=== PATIENT | female | born 1975 | race Caucasian/White ===

== ENCOUNTER 2024-03-24 18:05 | Emergency (ER) | payer MEDICAID, SELFPAY ==
[2024-03-24 18:25] VITALS: BP 135/89; PULSE 78; RESP 16; TEMP 36.4; O2SAT 100
--- NOTE | 2024-03-24 19:24 | ED.ANXIETY ---
HPI - Anxiety General Chief Complaint: Anxiety Stated Complaint: Anxiety, unable to sleep Time Seen by Provider: 03/24/24 19:04 History of Present Illness HPI narrative: patient presents here asking for medication refill, she is on Abilify and clonazepam, and unfortunately was unable to go to her doctor for refill at this time since her daughter is about to give her and she just needs enough to get her through. She feels like she is having acute anxiety Related Data Allergies Allergy/AdvReac Type Severity Reaction Status Date / Time No Known Allergies Allergy Verified 03/24/24 19:13 Review of Systems Review of Systems: CONST: No fever. HEENT: No sore throat C/V: No chest pain RESP: No cough GI: no abdominal pain : No dysuria. M/S: No joint pain. SKIN: No rash. NEURO: [No headache or focal numbness or weakness] PSYCH: appears anxious Exam Narrative: EXAMINATION OF ORGAN SYSTEMS/BODY AREAS: Constitutional: Vital signs per nursing GENERAL: Appears slightly anxious HEAD: Normal with no signs of head trauma. EYES: EOMI, conjunctiva normal ENT: Hearing grossly intact LUNGS: Nonlabored breathing. HEART: [Regular rate and rhythm] ABD: [Soft], [nontender to palpation] EXT: Normal range of motion SKIN: [No rashes or lesions.] NEURO: [Alert and oriented x 3. No gross focal sensory or strength deficits.] PSYCH: Anxious affect Course Vital Signs Vital signs: Vital Signs Temperature 97.6 F 03/24/24 18:25 Pulse Rate 78 03/24/24 18:25 Respiratory Rate 16 03/24/24 18:25 Blood Pressure 135/89 03/24/24 18:25 Pulse Oximetry 100 03/24/24 18:25 Oxygen Delivery Room Air 03/24/24 18:25 Temperature 97.6 F 03/24/24 18:25 Pulse Rate 78 03/24/24 18:25 Respiratory Rate 16 03/24/24 18:25 Blood Pressure 135/89 03/24/24 18:25 Pulse Oximetry 100 03/24/24 18:25 Oxygen Delivery Room Air 03/24/24 18:25 MDM - Anxiety MDM Narrative Medical decision making narrative: patient presents here requesting refill of her Klonopin and Abilify for at least a few days until her daughter gives , she is feeling acute anxiety currently. I did consider possible withdrawal however she has normal vital signs, does not appear tremulous, I did have a discussion with the patient that unfortunately I cannot give her too much supply of her Klonopin as it is a controlled substance but I will give her enough tab to hopefully keep her from going into withdrawal until she sees her primary care doctor for refill, I will also give her her supply of Abilify. I let her know she can return to the emergency room for any further issues. She is agreeable to this plan. Discharge Plan Discharge Clinical Impression: Acute anxiety, Medication refill Patient Disposition: Home, Self-Care Condition: Stable Instructions: Antibiotic Form, Anxiety (ED) Additional Instructions: Please follow up with your doctor; you can always return for any further issues. Prescriptions: New clonazepam 1 mg tablet 1 mg PO PRN Qty: 7 0RF Rx Instructions: Take 0.5 tab to 1 tab PRN daily as needed for severe anxiety. aripiprazole [Abilify] 10 mg tablet 10 mg PO DAILY Qty: 14 0RF Follow-up/Referrals: PHYSICIAN,CAR SEAT UPHOLSTERER [Primary Care Provider] -
[2024-03-24] MEDS: clonazePAM (*CRX) 0.5 MG TABLET PO (19:39)
[2024-03-24] MEDS: ARIPiprazole 10 MG TABLET PO (19:39)
[2024-03-24 20:17] VITALS: BP 126/76; PULSE 78; RESP 18; TEMP 36.7; O2SAT 98
== END 2024-03-24 20:18 | disposition home or self-care (01) ==
LOC: ANHED 20:01
PROVIDERS: Emergency Provider Emergency Medicine
DX: F41.9 Anxiety disorder, unspecified (principal); Z76.0 Encounter for issue of repeat prescription
CPT/HCPCS: 99283; A9270

== ENCOUNTER 2024-05-10 16:30 | Outpatient (CLI) | payer MEDICAID, SELFPAY ==
--- NOTE | ~2024-05-10 | MM_ITS ---
EXAMINATION: MM screening khadra BI w maria antonia HISTORY: Screening TECHNIQUE: Craniocaudal and mediolateral oblique 3-D tomosynthesis images were obtained and synthetic 2-D images were generated. CAD analysis was submitted and interpreted. COMPARISON: No prior mammogram is available for comparison at this institution. BREAST PARENCHYMAL COMPOSITION: Dense: The breasts are extremely dense, which lowers the sensitivity of mammography. FINDINGS: There is no evidence of suspicious mass, calcification, or architectural distortion to sugg est malignancy in either breast. There has been no suspicious interval change. IMPRESSION: 1. No mammographic evidence of malignancy. 2. Recommend routine screening mammography in one year. BI-RADS Category 1: Negative Reviewed, dictated and finalized at location B.
== END 2024-05-10 16:31 | disposition home or self-care (01) ==
LOC: ANHIMG 16:32
PROVIDERS: PCP Internal Medicine Infectious Disease; Visit Provider Internal Medicine Infectious Disease
DX: Z12.31 Encounter for screening mammogram for malignant neoplasm of breast (principal)
CPT/HCPCS: 77063; 77067

== ENCOUNTER 2024-05-30 19:14 | Emergency (ER) | payer OTHER, SELFPAY ==
[2024-05-30] VITALS (8 sets, daily range): BP systolic 136–153; BP diastolic 87–100; PULSE 61–77; RESP 12–17; TEMP 36.6; O2SAT 98–100
--- NOTE | ~2024-05-30 | XR_ITS ---
EXAMINATION: XR chest 2V DATE: 05/30/2024 19:46 INDICATION: Chest pain. Shortness of breath. TECHNIQUE: Frontal and lateral views of the chest were obtained. COMPARISON: None. FINDINGS: A calcified right lung nodule and calcified right hilar lymph nodes are consistent with old granulomatous disease. There is mild scarring at the lung apices. No pleural effusion or pneumothora x. The heart size is normal. IMPRESSION: 1. Mild scarring at the lung apices. Reviewed, dictated and finalized at location A.
--- NOTE | 2024-05-30 19:18 | ECG_ITS ---
Test Date: 2024-05-30 19:22:01 Measurements Intervals [place] Rate: 66 P: 61 [place]: 136 QRS: 33 QRSD: 95 T: 27 QT: 405 QTc: 425 Interpretive Statements SINUS RHYTHM No previous ECG available for comparison Electronically Signed On 05-31-2024 09:39:09 CDT by Rosalva Long M.D.
[2024-05-30 19:36] LABS: Basophils Absolute Auto 0.1 K/mm3 (0.0-0.1); Basophils Percent Auto 0.7 % (0.2-1.2); Eosinophils Absolute Auto 0.2 K/mm3 (0-0.3); Eosinophils Percent Auto 1.9 % (0-4.4); Hematocrit 37.6 % (37.0-47.0); Hemoglobin 12.6 g/dL (12.0-15.0); Immature Granulocyte Absolute 0.03 K/mm3 (0.00-0.031); Immature Granulocyte Percent A 0.3 % (0-0.5); Lymphocytes Absolute Auto 2.55 K/mm3 (0.9-3.2); Lymphocytes Percent Auto 25.6 % (18.3-44.2); Mean Corpuscular HGB Conc 33.5 g/dl (32-36); Mean Corpuscular Hemoglobin 30.8 pg (26-34); Mean Corpuscular Volume 91.9 fl (80-100); Monocytes Absolute Auto 0.8 K/mm3 (0.1-0.6); Monocytes Percent Auto 7.8 % (2.6-8.5); Neutrophils Absolute Auto 6.4 K/mm3 (1.3-6.7); Neutrophils Percent Auto 63.7 % (45.5-73.1); Platelet Count Result 328 k/mm3 (150-375); Red Blood Count 4.09 M/mm3 (4.2-5.4); Red Cell Distribution Width 12.8 % (11.5-14.5)
[2024-05-30 19:45] LABS: INR 1.1; Prothrombin Time 14.4 Seconds (11.1-14.7)
[2024-05-30 19:46] LABS: Partial Thromboplastin Time 34.4 Seconds (22.3-36.8)
[2024-05-30 19:50] LABS: Alanine Aminotransferase 17 U/L (6-35); Albumin Level 4.3 g/dL (3.5-5.1); Alkaline Phosphatase 64 U/L (38-126); Anion Gap 9 mmol/L (4-12); Aspartate Amino Transferase 20 U/L (14-36); Bilirubin,Total 0.5 mg/dL (0.2-1.3); Blood Urea Nitrogen 13 mg/dL (7-17); Carbon Dioxide 23 mmol/L (22-30); Chloride 104 mmol/L (98-107); Estimated CRCL calculation 73 ml/min; Estimated Glomerular Filt Rate > 60; Glucose 120 mg/dL (65-110); Lipase 101 U/L (23-300); Potassium 3.5 mmol/L (3.4-5.0); Sodium 136 mmol/L (137-145)
[2024-05-30 20:02] LABS: Troponin I < 0.012 ng/mL (0.000-0.034)
--- NOTE | 2024-05-30 20:53 | ED.CHESTPAIN ---
HPI - Chest Pain General Chief Complaint: Chest Pain Stated Complaint: anxiety attack Time Seen by Provider: 05/30/24 19:59 History of Present Illness HPI narrative: Patient is a 48-year-old female who presents to the emergency department this evening complaining of panic attack throughout the whole day. Patient states that when she gets these panic attacks and this caused her some chest pressure. Symptoms started 5:00 a.m. this morning and persistent the whole day which is what prompted her to come to the emergency department. Patient also states that she ran out of 1 of her anxiety medications, clonazepam which she takes 1 mg once a day and admits that this helped her significantly with her anxiety. 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 She is denying any sharp stabbing chest pain, any nausea, vomiting, abdominal pain, dysuria, hematuria, constipation, diarrhea, melena, hematochezia, fevers or chills. Denies any headaches, lightheadedness, blurry visions, focal weakness, numbness and tingling. There are no other modifying, alleviating, or precipitating factors at this time. Related Data Allergies Allergy/AdvReac Type Severity Reaction Status Date / Time No Known Allergies Allergy Verified 03/24/24 19:13 Review of Systems Review of Systems: All systems are reviewed and are negative unless stated otherwise in the HPI. Exam Narrative: General: Alert, awake, afebrile, in no acute distress, anxious. HEENT: PERRL, no rhinorrhea, no post nasal drip, oropharynx clear. Cardiovascular: Regular rate and rhythm, no murmurs, rubs or gallops, no peripheral edema. Respiratory: Clear to auscultation bilaterally, no tachypnea, no wheezing, no rhonchi, no rubs, no respiratory distress. Abdomen: Soft, nontender, nondistended, no rebound, no guarding, no peritoneal signs. Musculoskeletal: No joint swelling or deformity, normal muscle tone. Skin: No rashes or petechia, no signs of infection. Neurological: Alert and oriented to person, place, and time. Follows all commands. No focal deficits, speech is clear and fluent. Course Vital Signs Vital signs: Vital Signs Temperature 98 F 10/15/24 19:18 Pulse Rate 68 05/30/24 19:18 Respiratory Rate 16 05/30/24 19:18 Blood Pressure 136/90 05/30/24 19:18 Pulse Oximetry 100 05/30/24 19:18 Oxygen Delivery Room Air 05/30/24 19:18 Temperature 98 F 05/30/24 19:18 Pulse Rate 68 05/30/24 19:18 Respiratory Rate 16 05/30/24 19:18 Blood Pressure 136/90 05/30/24 19:18 Pulse Oximetry 100 05/30/24 19:18 Oxygen Delivery Room Air 05/30/24 19:18 MDM - Chest Pain MDM Narrative Medical decision making narrative: The patient was evaluated by myself in the emergency department. History is obtained from patient who is an independent historian and physical exam was performed. External medical records were reviewed at this time. IV was established and pertinent tests were ordered. Patient was administered 1 mg of oral Ativan for anxiety. EKG was obtained which revealed sinus rhythm rate of 66 beats per minute, no evidence of acute ischemia. EKG was independently interpreted by me and is currently pending official cardiology read. Laboratory results obtained revealing no acute process. Initial troponin negative. Imaging studies obtained included CXR which was independently interpreted by me revealing no acute cardiopulmonary process, which is pending final radiology interpretation. Differential diagnosis considerations include acute stress reaction, anxiety, panic attack, infectious process such as pneumonia and acute coronary syndrome although unlikely given patient's low heart score of Comorbidities impacting this visit include history of anxiety and panic attacks.
[2024-05-30] MEDS: LORazepam (*CRX) 1 MG TABLET PO (21:00)
== END 2024-05-30 21:37 | disposition home or self-care (01) ==
PROVIDERS: Emergency Provider Emergency Medicine; PCP Internal Medicine Infectious Disease
DX: F41.9 Anxiety disorder, unspecified (principal)
CPT/HCPCS: 36415; 71046; 80053; 83690; 84484; 85025; 85610; 85730; 93005; 99284; A9270

== ENCOUNTER 2024-06-27 10:45 | Emergency (ER) | payer OTHER, SELFPAY ==
--- NOTE | ~2024-06-27 | CT_ITS ---
CT brain wo con Ordering provider: Jocelyne Vasquez PA-C History: 48 years Female with . headaches . Comparison: None. Technique: CT of the head without contrast. Radiation reduction technique utilized. The dose-length product was 605.33 mGy-cm. FINDINGS: BRAIN PARENCHYMA AND CSF SPACES: Mild leukoaraiosis and diffuse cortical atrophy. Mild atheromatous d isease. No midline shift, mass effect or hemorrhage. The brain parenchyma and CSF spaces are otherwi se normal. VISUALIZED PARANASAL SINUSES: Well aerated. MASTOIDS: Well aerated. BONES: The bones appear intact. SOFT TISSUES: Visualized nasopharynx is normal. Superficial soft tissues are normal. IMPRESSION: No acute intracranial findings. Reviewed, dictated and finalized at location A. HEALTH LPN
--- NOTE | ~2024-06-27 | CT_ITS ---
EXAMINATION: CTA brain carotid DATE: 06/27/2024 14:09 INDICATION: Headache. TECHNIQUE: Computed tomographic angiography (CTA) of the head was performed with 100 mL Omnipaque-350 intravenous contrast. CTA of the neck was performed with intravenous contrast. Automated exposure co ntrol and iterative reconstruction technique were employed. The dose-length product was 915.90 mGy-cm . Maximum intensity projection and volume rendered 3D-reconstructions were created by the [employer] t on a separate workstation. COMPARISON: Head CT 06/27/2024 FINDINGS: HEAD CTA: There is no intracranial hemorrhage, acute infarction, or abnormal intracranial mass lesion . The ventricles are normal in size. There are likely changes of right ocular lens replacement surger y. There is mild mucosal thickening in the paranasal sinuses. There is a small right mastoid effusion . Left vertebral artery is dominant. There is no significant stenosis of basilar artery or the leadership development instructor ior cerebral arteries. The posterior communicating arteries are normal. There is no significant steno sis of the intracranial internal carotid arteries or anterior or middle cerebral arteries. Anterior c ommunicating artery is normal. There is no aneurysm. NECK CTA: There is mild emphysema. There is mild scarring at the lung apices. There are no pathologic ally enlarged lymph nodes. There is no significant stenosis of the vertebral arteries. There is mild plaque in the proximal internal carotid arteries. There is 0% stenosis of the proximal right internal carotid artery relative to normal distal artery lumen diameter (NASCET criteria). There is 0% stenos is of the proximal left internal carotid artery relative to normal distal artery lumen diameter. Ther e is severe cervical spondylosis. There are chronic compression fractures of T4 and T5. IMPRESSION: 1. Normal brain. No aneurysm or significant intracranial arterial stenosis. 2. 0% stenosis of the proximal internal carotid arteries relative to normal distal artery lumen diame ters (NASCET criteria). Reviewed, dictated and finalized at location A. E DRILL OPERATOR IMPRESSION: 1. Normal brain. No aneurysm or significant intracranial arterial stenosis. 2. 0% stenosis of the proximal internal carotid arteries relative to normal dis santy artery lumen diameters (NASCET criteria).
[2024-06-27 10:47] VITALS: BP 130/84; PULSE 60; RESP 15; TEMP 36.4; O2SAT 100
[2024-06-27 10:59] VITALS: BP 135/90; PULSE 61; RESP 16; TEMP 36.6; O2SAT 100
[2024-06-27 11:25] LABS: Basophils Absolute Auto 0.1 K/mm3 (0.0-0.1); Basophils Percent Auto 0.7 % (0.2-1.2); Eosinophils Absolute Auto 0.7 K/mm3 (0-0.3); Eosinophils Percent Auto 6.1 % (0-4.4); Hematocrit 39.1 % (37.0-47.0); Immature Granulocyte Absolute 0.05 K/mm3 (0.00-0.031); Immature Granulocyte Percent A 0.5 % (0-0.5); Lymphocytes Absolute Auto 3.21 K/mm3 (0.9-3.2); Lymphocytes Percent Auto 29.5 % (18.3-44.2); Mean Corpuscular HGB Conc 33.2 g/dl (32-36); Mean Corpuscular Hemoglobin 30.7 pg (26-34); Mean Corpuscular Volume 92.4 fl (80-100); Mean Platelet Volume 9.1 fl (7.4-10.4); Monocytes Absolute Auto 0.6 K/mm3 (0.1-0.6); Monocytes Percent Auto 5.5 % (2.6-8.5); Neutrophils Absolute Auto 6.3 K/mm3 (1.3-6.7); Neutrophils Percent Auto 57.7 % (45.5-73.1); Platelet Count Result 303 k/mm3 (150-375); Red Blood Count 4.23 M/mm3 (4.2-5.4); Red Cell Distribution Width 13.5 % (11.5-14.5); White Blood Count 10.9 K/mm3 (4.5-10.0)
--- NOTE | 2024-06-27 11:25 | ED_ITS ---
HPI - Headache General Chief Complaint: Headache Stated Complaint: migraine Time Seen by Provider: 06/27/24 11:00 Source: patient Mode of arrival: ambulatory Limitations: no limitations History of Present Illness HPI Narrative: This is a 48 year old female that presents to the ER for headache ongoing over the last 4 days. Reports she has had migraines for the last several years. She has an appointment to see a neurologist for this in the next couple of months. She has had a headache over the last 4 days that has been unrelieved. She tried taking some aspirin this morning. She has had associated nausea and vomiting. Reports she has been having ongoing visual problems the last several years as well for which she is seeing an tenant selector. Denies focal numbness or weakness. Related Data Allergies Allergy/AdvReac Type Severity Reaction Status Date / Time No Known Allergies Allergy Verified 06/27/24 10:45 Review of Systems Review of Systems: CONSTITUTIONAL: Denies fever EYES: Reports visual changes GASTROINTESTINAL: Reports nausea, vomiting NEUROLOGIC: Reports headache. Denies numbness, or weakness. All systems reviewed & are unremarkable except as noted in HPI and below PMFSH Past Medical History Medical History (Updated 06/27/24 @ 15:06 by Jocelyne Vasquez PA-C) Anxiety Social History Social History (Updated 06/27/24 @ 11:31 by Jocelyne Vasquez PA-C) Substance use: never Exam Narrative: GENERAL: Well-appearing, well-nourished, and in no acute distress. HEAD: Normocephalic, atraumatic. EYES: EOMI. Left pupil larger than right (chronic), pupils are reactive to light. ENT: Nares clear, no rhinorrhea or epistaxis. Mucous membranes moist. Oropharynx without tonsillar hypertrophy exudate or other lesions. Bilateral TMs pearly beckett non-bulging NECK: Supple. No adenopathy or masses. CHEST: Clear to auscultation. No respiratory distress. No wheezes rales or rhonchi HEART: Regular rate and rhythm. No murmur heard. Normal peripheral pulses. ABDOMEN: Soft, nontender, nondistended, normal active bowel sounds. EXTREMITIES: Normal range of motion. No edema. Strength equal in bilateral upper and lower extremities (5/5) SKIN: Warm, dry, no rash. NEURO: No focal deficits. Alert and oriented x3. Cranial nerves 2-12 grossly intact. Normal gait PSYCH: Normal mood and affect Course Course Emergency Course: Patient was updated on her workup and agrees with plan of care. Vital Signs Vital signs: Vital Signs Temperature 97.5 F L 06/27/24 10:47 Pulse Rate 60 06/27/24 10:47 Respiratory Rate 15 06/27/24 10:47 Blood Pressure 130/84 06/27/24 10:47 Pulse Oximetry 100 06/27/24 10:47 Oxygen Delivery Room Air 06/27/24 10:47 Temperature 97.9 F 06/27/24 10:59 Pulse Rate 61 06/27/24 10:59 Respiratory Rate 16 06/27/24 10:59 Blood Pressure 135/90 06/27/24 10:59 Pulse Oximetry 100 06/27/24 10:59 Oxygen Delivery Room Air 06/27/24 10:47 MDM - Headache MDM Narrative Medical decision making narrative: Patient presents to the emergency department for a headache ongoing over the last 4 days. Reports she has been struggling with headaches for the last several years. No recent injuries or trauma. This 1 is not much different than her usual headache. She has not been evaluated by Neurology for this yet. She does report she has been having ongoing vision problems as well. She is currently following with an tenant selector for that. Her vitals are stable. She is afebrile and nontoxic appearing. CT brain without acute findings. CTA brain and carotid also without concerning findings. She was given a migraine cocktail with improvement. Patient was updated on her workup and agrees with plan of care. She is to follow up with Neurology. She was given warnings to return to the ER Differential Diagnosis Differential diagnosis: Likely migraine, tension headache, subarachnoid hemorrhage, headache, sinusitis and other (subdural hematoma) Lab Data Attestation: I reviewed the patient's lab results. 06/27/24 11:16 06/27/24 11:16 Labs: Lab Results 06/27/24 Range/Units 11:16 WBC 10.9 H (4.5-10.0) K/mm3 RBC 4.23 (4.2-5.4) M/mm3 Hgb 13.0 (12.0-15.0) g/dL Hct 39.1 (37.0-47.0) % MCV 92.4 (80-100) fl MCH 30.7 (26-34) pg MCHC 33.2 (32-36) g/dl RDW 13.5 (11.5-14.5) % Plt Count 303 (150-375) k/mm3 MPV 9.1 (7.4-10.4) fl Immature Gran % (Auto) 0.5 (0-0.5) % Neut % (Auto) 57.7 (45.5-73.1) % Lymph % (Auto) 29.5 (18.3-44.2) % Sharp % (Auto) 5.5 (2.6-8.5) % Eos % (Auto) 6.1 H (0-4.4) % Baso % (Auto) 0.7 (0.2-1.2) % Lymph # (Auto) 3.21 H (0.9-3.2) K/mm3 Sharp # (Auto) 0.6 (0.1-0.6) K/mm3 Eos # (Auto) 0.7 H (0-0.3) K/mm3 Baso # (Auto) 0.1 (0.0-0.1) K/mm3 Abs Immat Gran (auto) 0.05 H (0.00-0.031) K/mm3 Absolute Neuts (auto) 6.3 (1.3-6.7) K/mm3 Absolute Nucleated RBC 0.000 (0.0-0.012) K/mm3 Nucleated RBC % 0.0 (0.0-0.2) % Sodium 134 L (137-145) mmol/L Potassium 4.7 (3.4-5.0) mmol/L Chloride 102 (98-107) mmol/L Carbon Dioxide 26 (22-30) mmol/L Anion Gap 6 (4-12) mmol/L BUN 11 (7-17) mg/dL Creatinine 0.90 (0.7-1.0) mg/dL Estim Creat Clear Calc 58 ml/min Estimated GFR > 60 (59 - ) Glucose 92 (65-110) mg/dL Calcium 8.3 L (8.4-10.2) mg/dL Total Bilirubin 0.3 (0.2-1.3) mg/dL AST 24 (14-36) U/L ALT 14 (6-35) U/L Alkaline Phosphatase 65 (38-126) U/L Total Protein 8.0 (6.3-8.2) g/dL Albumin 4.1 (3.5-5.1) g/dL Imaging Data Radiologist's impression: ITS Impressions Head CT 06/27/24 12:04 IMPRESSION: No acute intracranial findings. Head/Neck CTA 06/27/24 14:12 IMPRESSION: 1. Normal brain. No aneurysm or significant intracranial arterial stenosis. 2. 0% stenosis of the proximal internal carotid arteries relative to normal distal artery lumen diameters (NASCET criteria). Critical Care Time Critical Care Time Critical Care Time: No Discharge Plan Discharge Clinical Impression: Headache Qualifiers: Headache type: unspecified Headache chronicity pattern: chronic headache Intractability: not intractable Qualified Code(s): R51.9 - Headache, unspecified Patient Disposition: Home, Self-Care Condition: Improved Instructions: General Headache (ED) Additional Instructions: Return to the emergency department if you experience fever, stiff neck, new weakness or numbness, or any other symptoms that are concerning to you. Remain well hydrated. Tylenol or Ibuprofen as needed for pain. Prochlorperazine as needed for nausea Follow up with neurology for further evaluation Prescriptions: New prochlorperazine maleate 10 mg tablet 10 mg PO Q8H PRN (Reason: nausea and vomiting) Qty: 14 0RF No Action clonazepam 1 mg tablet 1 mg PO DAILY PRN (Reason: anxiety) Qty: 7 0RF clonazepam 1 mg tablet 1 mg PO PRN Qty: 7 0RF Rx Instructions: Take 0.5 tab to 1 tab PRN daily as needed for severe anxiety. aripiprazole [Abilify] 10 mg tablet 10 mg PO DAILY Qty: 14 0RF Follow-up/Referrals: Cain,Marlene Andrea. [Primary Care Provider] - Enoch Bennett MD [Physician] -
[2024-06-27] MEDS: SODIUM CHLORIDE 0.9% IV 1,000 ML 999 ML IV CONT (11:32)
[2024-06-27] MEDS: ACETAMINOPHEN 500 MG TABLET 1000 MG PO (11:33)
[2024-06-27] MEDS: METOCLOPRAMIDE HCL INJ 10 MG/2 ML VIAL IV PUSH (11:33)
[2024-06-27] MEDS: diphenhydrAMINE HCl INJ 50 MG/ML VIAL 25 MG IV PUSH (11:33)
[2024-06-27 11:34] LABS: Alanine Aminotransferase 14 U/L (6-35); Albumin Level 4.1 g/dL (3.5-5.1); Alkaline Phosphatase 65 U/L (38-126); Anion Gap 6 mmol/L (4-12); Aspartate Amino Transferase 24 U/L (14-36); Bilirubin,Total 0.3 mg/dL (0.2-1.3); Blood Urea Nitrogen 11 mg/dL (7-17); Calcium 8.3 mg/dL (8.4-10.2); Carbon Dioxide 26 mmol/L (22-30); Chloride 102 mmol/L (98-107); Estimated CRCL calculation 58 ml/min; Estimated Glomerular Filt Rate > 60; Glucose 92 mg/dL (65-110); Potassium 4.7 mmol/L (3.4-5.0); Sodium 134 mmol/L (137-145)
[2024-06-27] MEDS: KETOROLAC 15 MG/ML VIAL (*BKC) IV PUSH (12:53)
[2024-06-27] MEDS: LORazepam INJ (*CRX) 2 MG/ML VIAL 0.5 MG IV PUSH (14:13)
[2024-06-27 15:38] VITALS: BP 129/91; PULSE 62; RESP 18; TEMP 36.8; O2SAT 99
== END 2024-06-27 15:39 | disposition home or self-care (01) ==
PROVIDERS: Emergency Provider Physician Assistant; PCP Internal Medicine Infectious Disease
DX: R51.9 Headache, unspecified (principal); F41.9 Anxiety disorder, unspecified
CPT/HCPCS: 36415; 70450; 70496; 70498; 80053; 85025; 96361; 96374; 96375; 99284; A9270; J1200; J1885; J2060; J2765; J7030; Q9967

== ENCOUNTER 2025-05-28 12:15 | Outpatient (CLI) | payer OTHER, MEDICAID, SELFPAY ==
--- NOTE | ~2025-05-28 | XR_ITS ---
XR lumbar spine 2-3V Indication: lumbar back pain with radiculopathy Comparison: None Findings: Grade 1 anterolisthesis of L4 on L5, no fracture identified The disc heights are intact. Soft tissues unremarkable Impression: No acute abnormality. Reviewed, dictated and finalized at location P. Impression: No acute abnormality.
== END 2025-05-28 12:16 | disposition home or self-care (01) ==
PROVIDERS: PCP Family Medicine; Visit Provider Family Medicine
DX: M54.16 Radiculopathy, lumbar region (principal)
CPT/HCPCS: 72100